=== PATIENT | female | born 1965 | race Caucasian/White ===

== ENCOUNTER 2017-05-08 02:40 | Inpatient (IN) | payer OTHER ==
[~2017-05-08] VITALS: Ht 160 cm; Wt 64.0 kg
[2017-05-08] VITALS (7 sets, daily range): BP systolic 144–179; BP diastolic 81–106; PULSE 79–95; RESP 16–18; TEMP 97.7–98.8; O2SAT 96–99
[~2017-05-08 02:40] MED LIST: ESTR2TAB PO; ONDA4TAB7 OR; OXYC-360 PO; PROT40TA PO
[2017-05-08] MEDS ORDERED: BACT800T5 PO (02:50)
[2017-05-08] MEDS ORDERED: ESTR2TAB PO (02:50)
--- NOTE | 2017-05-08 03:47 | PD ---
HPI Chief Complaint: Skin Problem Time Seen by Provider: 03:36 Travel History International Travel<30 days: No Contact w/Intl Traveler<30days: No Traveled to known affect area: No History of Present Illness HPI The patient is a 51-year-old right-hand dominant female that developed an infection on her volar left thumb. She went to an urgent care Center and had it drained but the infection apparently is spreading from the thumb all the way to the antecubital fossa. She denies any fever. She denies any history of diabetes. She was put on Bactrim DS twice daily, she began this medication yesterday. She does not remember having had a tetanus shot since grade school. The patient states that her thumb first began to get red and painful , 3 days ago. She has not been elevating her left thumb. PFSH Past Medical History Reproductive: Yes (ENDOMETRIOSIS) Tetanus Vaccination: Unknown Influenza Vaccination: No ?: Not Menopausal: Yes : 1 Para: 1 Past Surgical History Hysterectomy: Yes (AGE 31) Tonsillectomy: Yes Social History Alcohol Use: Yes ("ONE BEER A DAY") Tobacco Use: Yes (1 ppd) Substance Use: No Allergies-Medications (Allergen,Severity, Reaction): Coded Allergies: No Known Allergies (Verified , 05/08/17) Reported Meds & Prescriptions Reported Meds & Active Scripts Active Reported Estradiol 2 Mg Tab 2 Mg PO DAILY Bactrim DS (Sulfamethoxazole-Trimethoprim) 800-160 Mg Tab 1 Tab PO BID Review of Systems Except as stated in HPI: all other systems reviewed are Neg Physical Exam Narrative GENERAL: The patient is alert, oriented 3 and slight apparent distress with her left arm/thumb infection. Her vital signs show blood pressure 176/97 but otherwise normal. SKIN: Focused skin assessment warm/dry. There is an apparent incision over is superficial abscesses on the volar aspect of the left thumb. This is on the distal phalanx. There is a red streak extending from the thumb and vesicles on the proximal dorsal thumb and the red streak goes all the way past the antecubital fossa. There are no tender or enlarged axillary lymph nodes. Epitrochlear lymph nodes are nontender and nonenlarged. HEAD: Atraumatic. Normocephalic. EYES: Pupils equal and round. No scleral icterus. No injection or drainage. ENT: No nasal bleeding or discharge. Mucous membranes pink and moist. NECK: Trachea midline. No JVD. CARDIOVASCULAR: Regular rate and rhythm. No murmur appreciated. RESPIRATORY: No accessory muscle use. Clear to auscultation. Breath sounds equal bilaterally. GASTROINTESTINAL: Abdomen soft, non-tender, nondistended. Hepatic and splenic margins not palpable. MUSCULOSKELETAL: No obvious deformities. No clubbing. No cyanosis. The left thumb appears to be the same size as the right thumb and it does not appear that there is any abscess to be drained at this time. NEUROLOGICAL: Awake and alert. No obvious cranial nerve deficits. Motor grossly within normal limits. Normal speech. PSYCHIATRIC: Appropriate mood and affect; insight and judgment normal. Data Data Last Documented VS Vital Signs Date Time Temp Pulse Resp B/P Pulse Ox O2 Delivery O2 Flow Rate FiO2 05/08/17 02:46 98.2 95 16 176/97 97 Room Air Orders Finger ([id number]) (05/08/17 03:47) Complete Blood Count With Diff (05/08/17 03:49) Basic Metabolic Panel (Bmp) (05/08/17 03:49) Wound Culture And Gram Stain (05/08/17 03:51) Tetanus/Diphtheria Tox Adult (Tetanus/Di (05/08/17 04:00) Lactic Acid Sepsis Protocol (05/08/17 04:35) Blood Culture (05/08/17 04:35) Vancomycin Inj (Vancomycin Inj) (05/08/17 04:45) Labs Laboratory Tests Test 05/08/17 04:15 White Blood Count 15.2 TH/MM3 Red Blood Count 4.57 MIL/MM3 Hemoglobin 14.4 GM/DL Hematocrit 41.8 % Mean Corpuscular Volume 91.3 FL Mean Corpuscular Hemoglobin 31.4 PG Mean Corpuscular Hemoglobin 34.4 % Concent Red Cell Distribution Width 12.6 % Platelet Count 232 TH/MM3 Mean Platelet Volume 8.5 FL Neutrophils (%) (Auto) 75.1 % Lymphocytes (%) (Auto) 12.7 % Monocytes (%) (Auto) 8.3 % Eosinophils (%) (Auto) 1.8 % Basophils (%) (Auto) 2.1 % Neutrophils # (Auto) 11.4 TH/MM3 Lymphocytes # (Auto) 1.9 TH/MM3 Monocytes # (Auto) 1.3 TH/MM3 Eosinophils # (Auto) 0.3 TH/MM3 Basophils # (Auto) 0.3 TH/MM3 CBC Comment DIFF FINAL Differential Comment Sodium Level 137 MEQ/L Potassium Level 6.0 MEQ/L Chloride Level 104 MEQ/L Carbon Dioxide Level 26.2 MEQ/L Anion Gap 7 MEQ/L Blood Urea Nitrogen 21 MG/DL Creatinine 0.75 MG/DL Estimat Glomerular Filtration 82 ML/MIN Rate Random Glucose 92 MG/DL Calcium Level 8.6 MG/DL MDM Medical Decision Making Medical Screen Exam Complete: Yes Emergency Medical Condition: Yes Medical Record Reviewed: Yes Interpretation(s) The basic metabolic profile shows a potassium of 6.0, BUN of 21, GFR of 82 but is otherwise unremarkable. The CBC shows a white count of 15,200 with 75% neutrophils but is otherwise unremarkable. X-rays of the thumb on the left show no acute bony abnormality or periosteal reaction but do show soft tissue swelling. Differential Diagnosis Felon thumb, abscess thumb, lymphadenitis left arm Narrative Course The patient has an abscess of the thumb that appears to be adequately drained. The thumb on the left does not appear to be significantly larger than the thumb on the right. The patient does fit sepsis criteria with heart rate, leukocytosis and site of infection known. She does have lymphadenitis past the antecubital fossa. Sepsis Criteria SIRS Criteria (2 or more): Heart rate over 90, WBC > 69617, < 4000 or > 10% bands Sepsis Criteria (SIRS+source): Infect source susp/known Criteria Outcome: Meets sepsis criteria Physician Communication Physician Communication I discussed the patient with Dr. Castro and . The patient will be admitted to Dr. Castro, will be consulting routinely. will see the patient here at [facility] if necessary. Diagnosis Primary Impression: Sepsis Additional Impressions: Acute lymphadenitis of arm Abscess of thumb, left Admitting Information Admitting Physician Requests: Admit Danny Travis MD May 08, 2017 03:47
[2017-05-08] MEDS ORDERED: TETANUS/DIPHTHERIA TOXOID ADULT 0.5 ML VIAL IM ONE (04:00)
--- NOTE | 2017-05-08 04:18 | RADRPT ---
EXAM DATE/TIME: 05/08/2017 03:55 [facility] COMPARISON: No previous studies available for comparison. INDICATIONS : Inflamation and redness of thumb. MEDICAL HISTORY : None. SURGICAL HISTORY : None. ENCOUNTER: Initial ACUITY: 1 day PAIN SCORE: 7/10 LOCATION: Left upper extremity first digit. FINDINGS: Examination of the first digit of the left hand demonstrates no evidence of fracture or dislocation. No radiopaque foreign bodies are seen. Mild soft tissue swelling. No periosteal reaction. CONCLUSION: Soft tissue swelling. No acute bony abnormality. Que Daly MD on May 08, 2017 at 4:16 Board Certified Radiologist. This report was verified electronically.
[2017-05-08 04:25] LABS: AUTOMATED NEUTROPHIL # 11.4 TH/MM3 (1.8-7.7); BASOPHIL # 0.3 TH/MM3 (0-0.2); BASOPHIL % 2.1 % (0.0-2.0); EOSINOPHIL # 0.3 TH/MM3 (0-0.4); EOSINOPHIL % 1.8 % (0.0-4.0); HEMATOCRIT 41.8 % (35.0-46.0); HEMO FLAGS DIFF FINAL; LYMPH % 12.7 % (9.0-44.0); LYMPHOCYTE # 1.9 TH/MM3 (1.0-4.8); MEAN CELL VOLUME 91.3 FL (80.0-100.0); MEAN CORPUSCULAR HEMOGLOBIN 31.4 PG (27.0-34.0); MEAN CORPUSCULAR HGB CONC 34.4 % (32.0-36.0); MONO % 8.3 % (0.0-8.0); NEUT % 75.1 % (16.0-70.0); PLATELET COUNT 232 TH/MM3 (150-450); RED BLOOD COUNT 4.57 MIL/MM3 (4.00-5.30); RED CELL DISTRIBUTION WIDTH 12.6 % (11.6-17.2); WHITE BLOOD COUNT 15.2 TH/MM3 (4.0-11.0)
[2017-05-08 04:35] LABS: BICARBONATE 26.2 MEQ/L (21.0-32.0)
[2017-05-08] MEDS ORDERED: VANCOMYCIN INJ 1,250 MG in SODIUM CHLOR 0.9% 250 ML INJ 250 ML IV ONE (04:45)
[2017-05-08] MEDS ORDERED: cloNIDine HCL 0.1 MG TAB PO ONE (07:00)
[2017-05-08] MEDS ORDERED: ACETAMINOPHEN 325 MG TAB PO PRN (07:30)
[2017-05-08] MEDS ORDERED: MAGNESIUM HYDROXIDE SUSP 30 ML CUP PO PRN (07:30)
[2017-05-08] MEDS ORDERED: LACTULOSE SYRUP 20 GM/30 ML CUP PO PRN (07:30)
[2017-05-08] MEDS ORDERED: SENNOSIDES 8.6 MG TAB PO PRN (07:30)
[2017-05-08] MEDS ORDERED: SODIUM CHLORIDE 0.9% FLUSH 10 ML FLUSH IV FLUSH PRN (07:30)
[2017-05-08] MEDS ORDERED: BISACODYL 10 MG SUPP RECTAL PRN (07:30)
[2017-05-08] MEDS ORDERED: NALOXONE HCL 0.4 MG/ML AMP IV PRN (07:30)
[2017-05-08] MEDS ORDERED: Vancomycin Consult Pharmacy 1 EA OTHER SCH (07:45)
[2017-05-08] MEDS ORDERED: cloNIDine HCL 0.1 MG TAB PO PRN (07:45)
[2017-05-08] MEDS: SULFAMETHOXAZOLE-TRIMETHOPRIM DS 800-160 MG TAB PO SCH ×2 (08:34→21:42)
[2017-05-08] MEDS: DOCUSATE SODIUM 50 MG/SENNA 8.6 MG TAB PO SCH ×2 (08:34→21:43)
[2017-05-08] MEDS: SODIUM CHLORIDE 0.9% FLUSH 10 ML FLUSH IV FLUSH SCH ×2 (08:35→21:44)
[2017-05-08] MEDS: ESTRADIOL 1 MG TAB PO SCH (10:19)
[2017-05-08] MEDS: HYDROmorphone HCL PF 1 MG/ML VIAL IV PUSH PRN ×2 (10:52→21:43)
--- NOTE | 2017-05-08 10:52 | HHI.HP ---
HPI Service [facility] Hospitalists Primary Care Physician Maria Elena Melton MD Admission Diagnosis sepsis, lymphadenitis left arm, abscess left thumb Chief Complaint: lymphadenitis left arm abscess left thumb Travel History International Travel<30 Days: No Contact w/Intl Traveler <30 Da: No Traveled to Known Affected Are: No History of Present Illness The patient is a 51-year-old right-hand dominant female that developed an infection on her volar left thumb. She went to an urgent care Center and had it drained but the infection apparently is spreading from the thumb all the way to the antecubital fossa. She denies any fever. She denies any history of diabetes. She was put on Bactrim DS twice daily, she began this medication yesterday. She does not remember having had a tetanus shot since grade school. The patient states that her thumb first began to get red and painful , 3 days ago. She has not been elevating her left thumb. Patient also with blisters on base of thumb. [facility] Review of Systems Musculoskeletal: COMPLAINS OF: Joint pain, Joint Swelling Past Family Social History Past Medical History since being teenager has had blisters on fingers that would go away Past Surgical History hysterectomy tonsil Reported Medications septra bid given by urgent care estrandiol Allergies: Coded Allergies: No Known Allergies (Verified , 05/08/17) Social History smokes 1ppd and 1 beer a day Physical Exam Vital Signs Vital Signs Date Time Temp Pulse Resp B/P Pulse Ox O2 Delivery O2 Flow Rate FiO2 05/08/17 08:00 97.9 79 18 173/94 99 05/08/17 06:25 98.6 83 18 175/106 99 05/08/17 05:05 97.9 87 16 179/86 98 Room Air 05/08/17 02:46 98.2 95 16 176/97 97 Room Air 05/08/17 02:46 98.2 95 16 176/97 97 Room Air Physical Exam GENERAL: This is a well-nourished, well-developed patient, in no apparent distress. SKIN: No rashes, ecchymoses or lesions. Cool and dry.Incision over superficial abscess volar aspect left thumb red streak thumb prox dorsal past antecubital fossa with large blister HEAD: Atraumatic. Normocephalic. No temporal or scalp tenderness. EYES: Pupils equal round and reactive. Extraocular motions intact. No scleral icterus. No injection or drainage. ENT: Nose without bleeding, purulent drainage or septal hematoma. Throat without erythema, tonsillar hypertrophy or exudate. Uvula midline. Airway patent. NECK: Trachea midline. No JVD or lymphadenopathy. Supple, nontender, no meningeal signs. CARDIOVASCULAR: Regular rate and rhythm without murmurs, gallops, or rubs. RESPIRATORY: Clear to auscultation. Breath sounds equal bilaterally. No wheezes , rales, or rhonchi. GASTROINTESTINAL: Abdomen soft, non-tender, nondistended. No hepato-splenomegaly , or palpable masses. No guarding. MUSCULOSKELETAL: Extremities without clubbing, cyanosis, or edema. No joint tenderness, effusion, or edema noted. No calf tenderness. Negative Homans sign bilaterally. NEUROLOGICAL: Awake and alert. Cranial nerves II through XII intact. Motor and sensory grossly within normal limits. Five out of 5 muscle strength in all muscle groups. Normal speech. Laboratory Laboratory Tests Test 05/08/17 05/08/17 04:15 04:45 White Blood Count 15.2 Red Blood Count 4.57 Hemoglobin 14.4 Hematocrit 41.8 Mean Corpuscular Volume 91.3 Mean Corpuscular Hemoglobin 31.4 Mean Corpuscular Hemoglobin 34.4 Concent Red Cell Distribution Width 12.6 Platelet Count 232 Mean Platelet Volume 8.5 Neutrophils (%) (Auto) 75.1 Lymphocytes (%) (Auto) 12.7 Monocytes (%) (Auto) 8.3 Eosinophils (%) (Auto) 1.8 Basophils (%) (Auto) 2.1 Neutrophils # (Auto) 11.4 Lymphocytes # (Auto) 1.9 Monocytes # (Auto) 1.3 Eosinophils # (Auto) 0.3 Basophils # (Auto) 0.3 CBC Comment DIFF FINAL Differential Comment Sodium Level 137 Potassium Level 6.0 Chloride Level 104 Carbon Dioxide Level 26.2 Anion Gap 7 Blood Urea Nitrogen 21 Creatinine 0.75 Estimat Glomerular Filtration 82 Rate Random Glucose 92 Calcium Level 8.6 Lactic Acid Level 1.1 Date/Time Procedure Status Source Growth 05/08/17 04:45 Aerobic Blood Culture Received Blood Peripheral Pending 05/08/17 04:45 Anaerobic Blood Culture Received Blood Peripheral Pending 05/08/17 03:50 Gram Stain Received Wound Finger Pending 05/08/17 03:50 Wound Culture Received Wound Finger Pending Result Diagram: 05/08/17 0415 05/08/17 0415 Imaging Last 24 hours Impressions Finger X-Ray 05/08/17 0347 Signed Impressions: Service Date/Time: Monday, May 08, 2017 03:55 - CONCLUSION: Soft tissue swelling. No acute bony abnormality. Que Daly MD Course started on vancomycin continue bactrim Assessment and Plan Problem List: (1) Abscess of thumb, left Status: Acute Plan: consult ortho hand continue vancomycin and bactrim add pain meds (2) Acute lymphadenitis of arm Status: Acute Plan: as follow cbc above (3) Sepsis Status: Acute Plan: does meet sirs criteria with wbc elevation Assessment and Plan further plan as case develops Code Status full Discussed Condition With patient Physician Certification 2 Midnight Certification Type: Admission for Inpatient Services Order for Inpatient Services The services are ordered in accordance with Medicare regulations or non- Medicare payer requirements, as applicable. In the case of services not specified as inpatient-only, they are appropriately provided as inpatient services in accordance with the 2-midnight benchmark. Estimated LOS (days): 3 3 days is the estimated time the patient will need to remain in the hospital, assuming treatment plan goals are met and no additional complications. Post-Hospital Plan: Not yet determined Denny Schreiber MD May 08, 2017 10:51
[2017-05-08] MEDS ORDERED: CYCLOBENZAPRINE HCL 10 MG TAB PO ONE (11:00)
[2017-05-08] MEDS ORDERED: POVIDONE IODINE 10% OINT 1 PACKET TOPICAL SCH (15:00)
--- NOTE | 2017-05-08 15:50 | MB ---
cc: DANIELA CAMERON M.D. DATE OF CONSULTATION 05/08/2017 REQUESTING PHYSICIAN The patient is being seen at request of Dr. Danny Travis REASON FOR CONSULTATION Infection of her left thumb. HISTORY OF PRESENT ILLNESS The patient is a 51-year-old female with a history of "cyst" since she has been a teenager. Recently the patient noted a cyst on the volar aspect of her left thumb. She went to an urgent care center yesterday and had it drained. Overnight the infection began to spread in terms of ascending lymphangitis and the patient came to the emergency room requesting treatment. The patient does report that the incision and drainage did relieve the pain on the volar pad of her left thumb but now she has some pain more proximally. She has difficulty bending her thumb. REVIEW OF SYSTEMS Positive for joint pain and swelling otherwise negative in detail. PAST MEDICAL HISTORY She denies high blood pressure, diabetes, heart disease, kidney disease, liver disease or disease of infectious etiology. PAST SURGICAL HISTORY 1. She had a hysterectomy. 2. And tonsillectomy. MEDICATIONS Include: 1. Septra. 2. Estradiol. ALLERGIES None. SOCIAL HISTORY She smokes a pack cigarettes per day and drinks a beer a day. PHYSICAL EXAMINATION GENERAL: On examination the patient is lying comfortably in bed. VITAL SIGNS: Temperature is 97.7, pulse of 82, respirations 18, blood pressure 144/84, pulse oximetry is 96% on room air. HEENT: Examination reveals her extraocular muscles are intact. Pupils are equal and reactive to light. Mouth is clear. NECK: Supple without masses. LUNGS: Clear. CARDIOVASCULAR: Heart is regular rate and rhythm. EXTREMITIES: Examination of upper extremities reveals minimal swelling of the volar pad of the left thumb. There is a blister dorsally over the MP joint but this is superficial. There is some swelling of the palmar surface. There is tenderness on palmar surface and the first webspace and bending her thumb is painful. LABORATORY DATA Her white count on admission was 15.2 with 75.1% neutrophils. Her chemistry revealed potassium 6.0, BUN of 21, creatinine of 0.75. We do not have any microbiological data yet. Although she did have a Gram stain and a wound culture as well as blood cultures. IMAGING The patient had an x-ray which is negative for bony involvement. IMPRESSION The patient appears to have infection of her left thumb. There is a possibility that the infection may have gotten into the tendon sheath although it is inconclusive at this time. PLAN The patient will continue intravenous antibiotics and will be reevaluated in 24 hours for possible surgical exploration. The patient understands and accepts the treatment plan. MD LEO Neal/LAWRENCE /2:30 PM /3:35 PM
[2017-05-08] MEDS: POVIDONE IODINE 10% SOLN 118 ML BOTTLE TOPICAL SCH (15:57)
[2017-05-08] MEDS: VANCOMYCIN INJ 750 MG in SODIUM CHLOR 0.9% 250 ML INJ 250 ML IV SCH (17:08)
[2017-05-09 00:55] VITALS: BP 138/94; PULSE 76; RESP 16; TEMP 98.9; O2SAT 97
[2017-05-09] MEDS: VANCOMYCIN INJ 750 MG in SODIUM CHLOR 0.9% 250 ML INJ 250 ML IV SCH ×2 (04:22→17:44)
[2017-05-09 04:52] VITALS: BP 187/108; PULSE 100; RESP 20; TEMP 98.3; O2SAT 95
[2017-05-09 06:55] LABS: AUTOMATED NEUTROPHIL # 9.5 TH/MM3 (1.8-7.7); BASOPHIL # 0.1 TH/MM3 (0-0.2); BASOPHIL % 0.7 % (0.0-2.0); EOSINOPHIL # 0.2 TH/MM3 (0-0.4); EOSINOPHIL % 1.3 % (0.0-4.0); HEMATOCRIT 39.5 % (35.0-46.0); HEMO FLAGS DIFF FINAL; LYMPH % 14.7 % (9.0-44.0); LYMPHOCYTE # 1.9 TH/MM3 (1.0-4.8); MEAN CELL VOLUME 92.1 FL (80.0-100.0); MEAN CORPUSCULAR HEMOGLOBIN 31.2 PG (27.0-34.0); MEAN CORPUSCULAR HGB CONC 33.9 % (32.0-36.0); MONO % 8.2 % (0.0-8.0); NEUT % 75.1 % (16.0-70.0); PLATELET COUNT 142 TH/MM3 (150-450); RED BLOOD COUNT 4.29 MIL/MM3 (4.00-5.30); RED CELL DISTRIBUTION WIDTH 12.1 % (11.6-17.2); WHITE BLOOD COUNT 12.8 TH/MM3 (4.0-11.0)
[2017-05-09 07:08] LABS: ALKALINE PHOSPHATASE 85 U/L (45-117); ALT (GPT) 10 U/L (10-53); ANION GAP 8 MEQ/L (5-15); AST (GOT) 11 U/L (15-37); BICARBONATE 24.3 MEQ/L (21.0-32.0); BLOOD UREA NITROGEN 15 MG/DL (7-18); CHLORIDE 109 MEQ/L (98-107); GLOMERULAR FILTRATION RATE 95 ML/MIN (>89); SODIUM (NA) 141 MEQ/L (136-145); TOTAL BILIRUBIN ADULT 0.5 MG/DL (0.2-1.0)
[2017-05-09 08:00] VITALS: BP 159/80; PULSE 81; RESP 16; TEMP 98; O2SAT 96
[2017-05-09] MEDS: DOCUSATE SODIUM 50 MG/SENNA 8.6 MG TAB PO SCH ×2 (08:54→21:00)
[2017-05-09] MEDS: SULFAMETHOXAZOLE-TRIMETHOPRIM DS 800-160 MG TAB PO SCH ×2 (08:54→21:33)
[2017-05-09] MEDS: SODIUM CHLORIDE 0.9% FLUSH 10 ML FLUSH IV FLUSH SCH ×2 (08:54→21:33)
[2017-05-09] MEDS: ESTRADIOL 1 MG TAB PO SCH (08:54)
[2017-05-09] MEDS: POVIDONE IODINE 10% OINT 30 GM TUBE TOPICAL SCH (08:59)
[2017-05-09] MEDS: POVIDONE IODINE 10% SOLN 118 ML BOTTLE TOPICAL SCH (09:00)
[2017-05-09] MEDS: HYDROmorphone HCL PF 1 MG/ML VIAL IV PUSH PRN ×3 (09:45→21:33)
--- NOTE | 2017-05-09 11:19 | HHI.PR ---
Subjective Remarks patient admitted with left thumb infection with lymangitis going up left arm , today seems to have increased to above anticubital fossa ,Orth. hand will recheck today and may require surgical exploration . Patient WBC count improved slightly. Objective Vitals GENERAL: SKIN: Warm and dry. red streking continues above left anticubital fossa HEAD: Atraumatic. Normocephalic. EYES: Pupils equal and round. No scleral icterus. No injection or drainage. ENT: No nasal bleeding or discharge. Mucous membranes pink and moist. NECK: Trachea midline. No JVD. CARDIOVASCULAR: Regular rate and rhythm. RESPIRATORY: No accessory muscle use. Clear to auscultation. Breath sounds equal bilaterally. GASTROINTESTINAL: Abdomen soft, non-tender, nondistended. Hepatic and splenic margins not palpable. MUSCULOSKELETAL: Extremities without clubbing, cyanosis, or edema. No obvious deformities. NEUROLOGICAL: Awake and alert. No obvious cranial nerve deficits. Motor grossly within normal limits. Five out of 5 muscle strength in the arms and legs. Normal speech. PSYCHIATRIC: Appropriate mood and affect; insight and judgment normal. Vital Signs Date Time Temp Pulse Resp B/P Pulse Ox O2 Delivery O2 Flow Rate FiO2 05/09/17 08:00 98.0 81 16 159/80 96 05/09/17 04:52 98.3 100 20 187/108 95 05/09/17 00:55 98.9 76 16 138/94 97 05/08/17 20:32 98.3 87 18 144/81 97 05/08/17 16:00 98.8 92 16 157/96 97 05/08/17 12:00 97.7 82 18 144/84 96 05/08/17 05/08/17 05/09/17 15:00 23:00 07:00 # Voids 2 Result Diagram: 05/09/17 0625 05/09/17 0625 Imaging Last 24 hours Impressions Finger X-Ray 05/08/17 0347 Signed Impressions: Service Date/Time: Monday, May 08, 2017 03:55 - CONCLUSION: Soft tissue swelling. No acute bony abnormality. Que Daly MD A/P Problem List: (1) Abscess of thumb, left Status: Acute Plan: vancomycin and bactrim add pain meds,ortho hand has evaluated patient any may require surgery (2) Acute lymphadenitis of arm Status: Acute Plan: as follow cbc slightly better today but red streking may have increased (3) Sepsis Status: Acute Plan: does meet sirs criteria with wbc elevation Assessment and Plan further plan as per hand surgeon Denny Schreiber MD May 09, 2017 11:18
[2017-05-09 12:00] VITALS: BP 155/87; PULSE 88; RESP 18; TEMP 98.7; O2SAT 96
[2017-05-09] MEDS ORDERED: PHARMACY ORDERED LAB ONE (16:45)
--- NOTE | 2017-05-09 17:39 | PD.PLAS.PN ---
Subjective Remarks Patient continues to have pain in the left thumb. Vital Signs Date Time Temp Pulse Resp B/P Pulse Ox O2 Delivery O2 Flow Rate FiO2 05/09/17 15:38 18 05/09/17 12:00 98.7 88 18 155/87 96 05/09/17 08:00 98.0 81 16 159/80 96 05/09/17 04:52 98.3 100 20 187/108 95 05/09/17 00:55 98.9 76 16 138/94 97 05/08/17 20:32 98.3 87 18 144/81 97 I/O 05/08/17 05/08/17 05/08/17 05/09/17 05/09/17 05/09/17 07:00 15:00 23:00 07:00 15:00 23:00 Intake Total 250 ml 600 ml Balance 250 ml 600 ml Intake Oral 600 ml IV Total 250 ml # Voids 1 2 2 Laboratory Tests Test 05/09/17 06:25 White Blood Count 12.8 Red Blood Count 4.29 Hemoglobin 13.4 Hematocrit 39.5 Mean Corpuscular Volume 92.1 Mean Corpuscular Hemoglobin 31.2 Mean Corpuscular Hemoglobin 33.9 Concent Red Cell Distribution Width 12.1 Platelet Count 142 Mean Platelet Volume 8.6 Neutrophils (%) (Auto) 75.1 Lymphocytes (%) (Auto) 14.7 Monocytes (%) (Auto) 8.2 Eosinophils (%) (Auto) 1.3 Basophils (%) (Auto) 0.7 Neutrophils # (Auto) 9.5 Lymphocytes # (Auto) 1.9 Monocytes # (Auto) 1.1 Eosinophils # (Auto) 0.2 Basophils # (Auto) 0.1 CBC Comment DIFF FINAL Differential Comment Sodium Level 141 Potassium Level 4.0 Chloride Level 109 Carbon Dioxide Level 24.3 Anion Gap 8 Blood Urea Nitrogen 15 Creatinine 0.66 Estimat Glomerular Filtration 95 Rate Random Glucose 82 Calcium Level 7.9 Total Bilirubin 0.5 Aspartate Amino Transf 11 (AST/SGOT) Alanine Aminotransferase 10 (ALT/SGPT) Alkaline Phosphatase 85 Total Protein 6.1 Albumin 2.7 Date/Time Procedure Status Source Growth 05/08/17 04:45 Aerobic Blood Culture - Preliminary Resulted Blood Peripheral NO GROWTH IN 1 DAY 05/08/17 04:45 Anaerobic Blood Culture - Preliminary Resulted Blood Peripheral NO GROWTH IN 1 DAY 05/08/17 03:50 Gram Stain - Final Resulted Wound Finger 05/08/17 03:50 Wound Culture - Preliminary Resulted Staphylococcus Aureus Group A Beta Strep Result Diagram: 05/09/1762405/09/17624 Exam Findings Her range of motion has not improved significantly. There is still swelling of the surrounding tissues. Plan Impression: The patient may have involvement of the tendon sheath. There may be a deep abscess. Plan: The patient will have her left thumb explored in the OR in the morning. She understands and accepts the risks and complications of the surgery. Tamara Brenner MD May 09, 2017 17:39
[2017-05-09 18:00] VITALS: BP 177/95; PULSE 96; RESP 18; TEMP 98.7
[2017-05-09 20:00] VITALS: BP 133/91; PULSE 88; RESP 18; TEMP 97.7; O2SAT 96
[2017-05-10] VITALS: BP 141/94; PULSE 87; RESP 18; TEMP 98.2; O2SAT 96
[2017-05-10] MEDS: VANCOMYCIN 1,000 MG/NS 250 ML IV SCH ×4 (05:06→16:23)
[2017-05-10 08:04] VITALS: BP 171/80; PULSE 84; RESP 19; TEMP 97.6; O2SAT 95
[2017-05-10] MEDS: POVIDONE IODINE 10% OINT 30 GM TUBE TOPICAL SCH (09:00)
[2017-05-10] MEDS: POVIDONE IODINE 10% SOLN 118 ML BOTTLE TOPICAL SCH (09:00)
[2017-05-10] MEDS: SODIUM CHLORIDE 0.9% FLUSH 10 ML FLUSH IV FLUSH SCH ×2 (09:00→20:55)
[2017-05-10] MEDS: DOCUSATE SODIUM 50 MG/SENNA 8.6 MG TAB PO SCH ×2 (10:12→20:54)
[2017-05-10] MEDS: ESTRADIOL 1 MG TAB PO SCH (10:12)
[2017-05-10] MEDS: SULFAMETHOXAZOLE-TRIMETHOPRIM DS 800-160 MG TAB PO SCH ×2 (10:12→20:54)
[2017-05-10] MEDS ORDERED: ONDANSETRON HCL 4 MG/2 ML VIAL IV PUSH ONE (12:00)
[2017-05-10] MEDS ORDERED: PROPOFOL 200 MG/20 ML AMP IV ONE (12:00)
[2017-05-10] MEDS ORDERED: BUPIVACAINE HCL PF 0.5% 30 ML VIAL ONE (12:28)
[2017-05-10] MEDS ORDERED: POVIDONE IODINE 10% OINT 1 PACKET ONE (13:13)
--- NOTE | 2017-05-10 13:24 | HHI.PR ---
Immediate Post Op Note Procedure Date: May 10, 2017 Pre Op Diagnosis: (1) Abscess of thumb, left Post Op Diagnosis: (1) Abscess of thumb, left Surgeon: Tamara Brenner Visual Developer(s): None Procedure: Incision and drainage of abscess of left thumb. Anesthesia: General Drains: Other (1/4 inch iodoform packing.) Tourniquet time (min at mmHg) 15 minutes at 220 mm Hg. Patient to: PACU Patient Condition: Good Date/Time of Procedure: SEE SURGICAL CARE RECORD Tamara Brenner MD May 10, 2017 13:24
[2017-05-10 13:28] VITALS: PULSE 91
--- NOTE | 2017-05-10 15:57 | HHI.PR ---
Subjective Remarks Patient went to OR for I and D for left thumb abscess ,cultures gram stain strep sensitive to vanco and bacrim Objective Vitals GENERAL: SKIN: Warm and dry. Hand has bandage still some reddness arm HEAD: Atraumatic. Normocephalic. EYES: Pupils equal and round. No scleral icterus. No injection or drainage. ENT: No nasal bleeding or discharge. Mucous membranes pink and moist. NECK: Trachea midline. No JVD. CARDIOVASCULAR: Regular rate and rhythm. RESPIRATORY: No accessory muscle use. Clear to auscultation. Breath sounds equal bilaterally. GASTROINTESTINAL: Abdomen soft, non-tender, nondistended. Hepatic and splenic margins not palpable. MUSCULOSKELETAL: Extremities without clubbing, cyanosis, or edema. No obvious deformities. NEUROLOGICAL: Awake and alert. No obvious cranial nerve deficits. Motor grossly within normal limits. Five out of 5 muscle strength in the arms and legs. Normal speech. PSYCHIATRIC: Appropriate mood and affect; insight and judgment normal. Vital Signs Date Time Temp Pulse Resp B/P Pulse Ox O2 Delivery O2 Flow Rate FiO2 05/10/17 14:00 97.7 84 16 147/84 96 Room Air 05/10/17 13:45 97.7 83 16 139/77 96 Room Air 05/10/17 13:30 97.7 84 16 139/76 96 Room Air 05/10/17 13:28 97.7 86 16 151/94 97 Room Air 05/10/17 13:28 91 05/10/17 10:50 97.9 90 18 154/98 98 05/10/17 08:04 97.6 84 19 171/80 95 05/10/17 00:00 98.2 87 18 141/94 96 05/09/17 20:00 97.7 88 18 133/91 96 05/09/17 18:00 98.7 96 18 177/95 05/09/17 05/09/17 05/10/17 15:00 23:00 07:00 Intake Total 600 ml 450 ml 250 ml Balance 600 ml 450 ml 250 ml Intake Oral 600 ml 200 ml 0 ml IV Total 250 ml 250 ml # Voids 2 2 1 # Bowel Movements 0 Result Diagram: 05/09/17 0625 05/09/17 0625 Imaging Last 24 hours Impressions Finger X-Ray 05/08/17 0347 Signed Impressions: Service Date/Time: Monday, May 08, 2017 03:55 - CONCLUSION: Soft tissue swelling. No acute bony abnormality. Que Daly MD A/P Problem List: (1) Abscess of thumb, left Status: Acute Plan: vancomycin and bactrim add pain meds,ortho hand has evaluated s/p surgery for left thumb abscess (2) Acute lymphadenitis of arm Status: Acute Plan: as follow cbc slightly better today but red streking may have increased (3) Sepsis Status: Acute Plan: does meet sirs criteria with wbc elevation Assessment and Plan further plan as per hand surgeon Denny Schreiber MD May 10, 2017 15:57
[2017-05-10] MEDS: HYDROmorphone HCL PF 1 MG/ML VIAL IV PUSH PRN ×2 (16:23→23:29)
[2017-05-10 16:57] VITALS: BP 162/72; PULSE 84; RESP 19; TEMP 97.6; O2SAT 91
[2017-05-10 20:00] VITALS: BP 151/85; PULSE 87; RESP 20; TEMP 97.4; O2SAT 96
[2017-05-10] MEDS ORDERED: CHLORHEXIDINE GLUCONATE 2 % 1 PACK (2 CLOTHS) TOPICAL PRN (22:15)
[2017-05-10] MEDS ORDERED: POVIDONE IODINE 5% (ANTISEPSIS KIT) 4 APPLICATIONS EACH NARE PRN (22:15)
[2017-05-10] MEDS ORDERED: INSULIN HUMAN REGULAR 1,000 UNITS/10 ML VIAL SQ PRN (22:15)
[2017-05-10] MEDS ORDERED: LACTATED RINGER'S 1000 ML IV PRN (22:15)
[2017-05-11] VITALS: BP 162/89; PULSE 78; RESP 20; TEMP 96.9; O2SAT 96
[2017-05-11 04:00] VITALS: BP 142/86; PULSE 70; RESP 20; TEMP 96; O2SAT 97
[2017-05-11] MEDS: HYDROmorphone HCL PF 1 MG/ML VIAL IV PUSH PRN ×3 (05:31→21:28)
[2017-05-11] MEDS: VANCOMYCIN 1,000 MG/NS 250 ML IV SCH ×2 (05:31)
[2017-05-11 06:09] LABS: AUTOMATED NEUTROPHIL # 9.6 TH/MM3 (1.8-7.7); BASOPHIL # 0.1 TH/MM3 (0-0.2); BASOPHIL % 0.4 % (0.0-2.0); EOSINOPHIL # 0.1 TH/MM3 (0-0.4); HEMATOCRIT 38.8 % (35.0-46.0); HEMO FLAGS DIFF FINAL; LYMPH % 15.7 % (9.0-44.0); MEAN CELL VOLUME 91.4 FL (80.0-100.0); MEAN CORPUSCULAR HEMOGLOBIN 31.1 PG (27.0-34.0); NEUT % 74.9 % (16.0-70.0); PLATELET COUNT 267 TH/MM3 (150-450); RED BLOOD COUNT 4.25 MIL/MM3 (4.00-5.30); RED CELL DISTRIBUTION WIDTH 12.1 % (11.6-17.2); WHITE BLOOD COUNT 12.8 TH/MM3 (4.0-11.0)
--- NOTE | 2017-05-11 07:05 | MP ---
cc: DANIELA CAMERON M.D. DATE OF SURGERY 05/10/2017 PREOPERATIVE DIAGNOSIS Abscess of left thumb. POSTOPERATIVE DIAGNOSIS Abscess of left thumb. PROCEDURE Excision and drainage abscess of left thumb. ANESTHESIA General SURGEON Dr. Cameron INDICATIONS This is a 51-year-old female with a history of multiple cysts and abscesses which are formed. The patient developed one over the weekend, was seen in the Urgent Care Center where it was drained. When the patient came in, the culture was still positive for Staph aureus which was sensitive to most things except penicillin. Over the admission, the patient's white count has diminished as well as swelling, but she still remained symptomatic with difficulty bending her thumb. FINDINGS Exploration revealed a small amount of turbid fluid within the abscess cavity. The tendon sheath was not entered and there was no fluid within the tendon sheath of the thumb. The other areas were explored. There was no evidence of any difficulty passively bending her thumb. In addition, no other areas of fluctuance were noted. At the completion of the procedure, the area of the thumb was drained and packed. A median nerve block was effected using bupivacaine 0.5% plain for postoperative pain control. TOURNIQUET TIME 19 minutes PROCEDURE The patient was seen preoperatively where the site and side were identified and marked. The patient was then taken to the operating room, placed in a supine position. Her identity was checked against the arm band and the consent form site and side confirmed, time-out called prior to beginning the procedure. The left upper extremity was prepped with Hibiclens and draped in the usual sterile fashion. The area to be incised was outlined with a marking pen as a longitudinal incision in the area of the previous incision and drainage which had healed. Some scabbing was present. The arm was elevated and the tourniquet was inflated after 30 seconds to 220 mmHg. The scab was then removed and an incision was made in the area of the swelling and fluctuance. A small amount of turbid fluid was present. This was irrigated out. The area was cleansed, exploration down to the area of the insertion of the flexor pollicis longus was undertaken, the tendon was visualized, pressure was placed from the wrist all the way up along the tendon sheath all the way to that area of the wound and no pus was expressed. The finger was flexed fully. There was no difficulty flexing the thumb and there was no additional fluid that was seen. The blister on the back of the thumb which had been drained was debrided. The area was then infiltrated with 0.5% Marcaine. This was infiltrated to make a median nerve block that was the only area that was injected. Once the block was put in place and the wound was irrigated, it was packed with quarter iodoform packing along with povidone-iodine ointment, which was also placed on the blister and a dry dressing using Adaptic, Telfa, 4x4s and hand wrap. The patient was then taken from the operating room to the recovery room in satisfactory condition having tolerated the procedure well. The tourniquet had been released after 50 minutes of tourniquet time. This was just before placing a dressing. No significant bleeding was noted. Postoperative instructions were written. MD LEO Neal/ZEINA /1:27 PM /6:53 AM JOAQUIN
[2017-05-11 08:56] VITALS: BP 158/91; PULSE 78; RESP 16; TEMP 96.9; O2SAT 96
[2017-05-11] MEDS: POVIDONE IODINE 10% OINT 30 GM TUBE TOPICAL SCH (08:58)
[2017-05-11] MEDS: DOCUSATE SODIUM 50 MG/SENNA 8.6 MG TAB PO SCH ×2 (08:58→21:28)
[2017-05-11] MEDS: ESTRADIOL 1 MG TAB PO SCH (08:58)
[2017-05-11] MEDS: SULFAMETHOXAZOLE-TRIMETHOPRIM DS 800-160 MG TAB PO SCH (08:58)
[2017-05-11] MEDS: SODIUM CHLORIDE 0.9% FLUSH 10 ML FLUSH IV FLUSH SCH ×2 (08:59→21:29)
[2017-05-11] MEDS: POVIDONE IODINE 10% SOLN 118 ML BOTTLE TOPICAL SCH (08:59)
--- NOTE | 2017-05-11 10:53 | HHI.PR ---
Subjective Remarks Patient feels about the same with increasing left arm discomfort with persistent lymphangitis ,s/p surgery yesterday Objective Vitals GENERAL: SKIN: Warm and dry. red not hot some tenderness left arm dressing on left thumb hand HEAD: Atraumatic. Normocephalic. EYES: Pupils equal and round. No scleral icterus. No injection or drainage. ENT: No nasal bleeding or discharge. Mucous membranes pink and moist. NECK: Trachea midline. No JVD. CARDIOVASCULAR: Regular rate and rhythm. RESPIRATORY: No accessory muscle use. Clear to auscultation. Breath sounds equal bilaterally. GASTROINTESTINAL: Abdomen soft, non-tender, nondistended. Hepatic and splenic margins not palpable. MUSCULOSKELETAL: Extremities without clubbing, cyanosis, or edema. No obvious deformities. NEUROLOGICAL: Awake and alert. No obvious cranial nerve deficits. Motor grossly within normal limits. Five out of 5 muscle strength in the arms and legs. Normal speech. PSYCHIATRIC: Appropriate mood and affect; insight and judgment normal. Vital Signs Date Time Temp Pulse Resp B/P Pulse Ox O2 Delivery O2 Flow Rate FiO2 05/11/17 08:56 96.9 78 16 158/91 96 05/11/17 04:00 96.0 70 20 142/86 97 05/11/17 00:00 96.9 78 20 162/89 96 05/10/17 20:00 97.4 87 20 151/85 96 05/10/17 16:57 97.6 84 19 162/72 91 05/10/17 14:00 97.7 84 16 147/84 96 Room Air 05/10/17 13:45 97.7 83 16 139/77 96 Room Air 05/10/17 13:30 97.7 84 16 139/76 96 Room Air 05/10/17 13:28 97.7 86 16 151/94 97 Room Air 05/10/17 13:28 91 05/10/17 05/10/17 05/11/17 14:59 22:59 06:59 Intake Total 840 ml 1250 ml 120 ml Output Total 0 ml Balance 840 ml 1250 ml 120 ml Intake Oral 240 ml 1250 ml 120 ml IV Total 100 ml Other 500 ml Output Urine Total 0 ml # Voids 0 9 0 # Bowel Movements 0 0 Result Diagram: 05/11/17 0505 05/09/17 0625 Imaging Last 24 hours Impressions Finger X-Ray 05/08/17 0347 Signed Impressions: Service Date/Time: Monday, May 08, 2017 03:55 - CONCLUSION: Soft tissue swelling. No acute bony abnormality. Que Daly MD A/P Problem List: (1) Abscess of thumb, left Status: Acute Plan: vancomycin and bactrim add pain meds,ortho hand has evaluated s/p surgery for left thumb abscess still with pain (2) Acute lymphadenitis of arm Status: Acute Plan: as follow cbc slightly better today but red streking may have increased will ask ID to evaluate (3) Sepsis Status: Acute Plan: does meet sirs criteria with wbc elevation Assessment and Plan further plan as per hand surgeon Denny Schreiber MD May 11, 2017 10:52
[2017-05-11 14:13] VITALS: BP 151/90; PULSE 73; RESP 16; TEMP 97.4; O2SAT 97
--- NOTE | 2017-05-11 14:38 | PD.CONS ---
History of Present Illness Service Infectious disease Consult Requested By Dr. Schreiber Reason for Consult Evaluate patient with persistent lymphangitis Primary Care Physician Maria Elena Melton MD Diagnoses: History of Present Illness Patient seen and examined. Records reviewed. Patient is a 51-year-old female admitted to the hospital for further evaluation of pain swelling redness on her left hand that goes up to her left forearm. According to the patient she gets this bumps on her hands on and off for a while now. They usually will prove one its own without any medical attention. This time she had noted a bump on her left thumb about 3-4 days prior to admission. It started getting bigger and a second one close to it also showed up. It was giving her significant pain, so she went to an urgent care center one day prior to admission. One of the lesion was drained and she was given on antibiotics. The day of admission when she woke up she noted that her left thumb was swollen and her left hand with redness going up to her left forearm. She continued to have significant pain. She presented to the hospital for further evaluation and treatment. He has not had any fever or chills or sweats. She denies any sore throat or any respiratory symptoms, GI or any urinary symptom. Since admission patient has not had any fever. Her initial white count was 15,000, and it's down to 12,000. Hand surgery evaluated the patient, and because she was not improving the clinic, she was taken to surgery yesterday and underwent I and D of the abscess on her left thumb. MRSA culture on admission of the wound, and it has MSSA, and group A strep. Patient is still complaining of pain. She is also noticing an area of lymphangitis which according to her was not present prior to admission. Infectious disease consultation has been requested to evaluate the patient. Review of Systems Constitutional: DENIES: Fever, Chills, Night Sweats Eyes: DENIES: Eye pain Ears, nose, mouth, throat: DENIES: Nasal discharge, Oral lesions, Throat pain, Ear Pain Respiratory: DENIES: Cough, Shortness of breath Cardiovascular: DENIES: Chest pain, Palpitations, Syncope Gastrointestinal: DENIES: Abdominal pain, Nausea, Vomiting, Difficulty Swallowing Genitourinary: DENIES: Dysuria Musculoskeletal: COMPLAINS OF: Joint pain, Joint Swelling Integumentary: DENIES: Rash Immunologic/allergic: DENIES: Urticaria Neurologic: DENIES: Headache Psychiatric: DENIES: Confusion, Hallucinations Past Family Social History Allergies: Coded Allergies: No Known Allergies (Verified , 05/08/17) Past Medical History Endometriosis One and normal delivery Past Surgical History Hysterectomy Tonsillectomy Active Ordered Medications Tylenol Dulcolax Clonidine Estradiol Dilaudid Insulin Lactulose MOM Dayanna-Colace Senokot Bactrim Vancomycin Family History Noncontributory Social History Smokes one pack per day cigarette Drinks usually 1 beer a day Denies illicit drugs Physical Exam Vital Signs Vital Signs Date Time Temp Pulse Resp B/P Pulse Ox O2 Delivery O2 Flow Rate FiO2 05/11/17 14:13 97.4 73 16 151/90 97 05/11/17 08:56 96.9 78 16 158/91 96 05/11/17 04:00 96.0 70 20 142/86 97 05/11/17 00:00 96.9 78 20 162/89 96 05/10/17 20:00 97.4 87 20 151/85 96 05/10/17 16:57 97.6 84 19 162/72 91 Physical Exam GENERAL: Patient is a well-nourished, well-developed female, awake and alert , not in respiratory distress. SKIN: Warm and dry. No generalized rash, no ecchymoses and no evidence of embolic lesions. HEAD: Atraumatic. Normocephalic. No temporal wasting, or tenderness. EYES: Monette conjunctiva. No petechia or hemorrhage. Pupils equal, round and reactive to light. Extraocular movements full and intact. No scleral icterus. No injection or drainage. EARS, NOSE AND THROAT: Nose without bleeding or purulent nasal discharge. No sinus tenderness. Mucous membranes pink and moist. No oral lesions noted. No exudate. No oral thrush. NECK: Trachea midline. Supple and not tender, no meningeal signs CARDIOVASCULAR: Regular rate and rhythm. No murmurs, rubs or gallops heard RESPIRATORY: Clear to auscultation. Breath sounds equal bilaterally. No rales , wheezing or rhonchi ABDOMEN: Soft, non-tender, nondistended. Bowel sounds present and normoactive. No guarding. No rebound. No organomegaly. EXTREMITIES: No clubbing, cyanosis, or edema. L hand has an intact dry dressing in place. there is lymphangitis in dorsal aspect of her forearm going up to the olecranon area, and a wrapper operator pink area on the volar surface of her forearm. No calf tenderness. Well perfused and warm. NEUROLOGICAL: Awake and alert. Cranial nerves grossly intact. Motor grossly within normal limits. PSYCHIATRIC: Normal affect, calm and cooperative. LINE: No evidence of infection Laboratory Laboratory Tests Test 05/11/17 05:05 White Blood Count 12.8 Red Blood Count 4.25 Hemoglobin 13.2 Hematocrit 38.8 Mean Corpuscular Volume 91.4 Mean Corpuscular Hemoglobin 31.1 Mean Corpuscular Hemoglobin 34.0 Concent Red Cell Distribution Width 12.1 Platelet Count 267 Mean Platelet Volume 8.6 Neutrophils (%) (Auto) 74.9 Lymphocytes (%) (Auto) 15.7 Monocytes (%) (Auto) 8.0 Eosinophils (%) (Auto) 1.0 Basophils (%) (Auto) 0.4 Neutrophils # (Auto) 9.6 Lymphocytes # (Auto) 2.0 Monocytes # (Auto) 1.0 Eosinophils # (Auto) 0.1 Basophils # (Auto) 0.1 CBC Comment DIFF FINAL Differential Comment Date/Time Procedure Status Source Growth 05/08/17 04:45 Aerobic Blood Culture - Preliminary Resulted Blood Peripheral NO GROWTH IN 3 DAYS 05/08/17 04:45 Anaerobic Blood Culture - Preliminary Resulted Blood Peripheral NO GROWTH IN 3 DAYS 05/08/17 03:50 Gram Stain - Final Complete Wound Finger 05/08/17 03:50 Wound Culture - Final Complete Staphylococcus Aureus Group A Beta Strep Result Diagram: 05/11/17 0505 05/09/17 0625 Imaging Last Impressions Finger X-Ray 05/08/17 0342 Signed Impressions: Service Date/Time: Monday, May 08, 2017 03:55 - CONCLUSION: Soft tissue swelling. No acute bony abnormality. Que Daly MD Assessment and Plan Assessment and Plan IMPRESSION Cellulitis L hand with lymphangitis and with abscess L thumb, S/P I and D 05/10 - wound C/S MSSA and GAS RECOMMENDATION Change to a cephalosporin - Ancef Stop IV vanco and Bactrim Short course of Clinda which can help in quicker control of GAS infection LUE elevation Monitor progress Would expect that she will be D/C on oral Abx I will follow along with you Thank you for this consultation Discussed Condition With Explained plan to the patient Eun Peraza MD May 11, 2017 14:38
--- NOTE | 2017-05-11 15:01 | PD.PLAS.PN ---
Subjective Remarks Patient reports less swelling and pain. Vital Signs Date Time Temp Pulse Resp B/P Pulse Ox O2 Delivery O2 Flow Rate FiO2 05/11/17 14:13 97.4 73 16 151/90 97 05/11/17 08:56 96.9 78 16 158/91 96 05/11/17 04:00 96.0 70 20 142/86 97 05/11/17 00:00 96.9 78 20 162/89 96 05/10/17 20:00 97.4 87 20 151/85 96 05/10/17 16:57 97.6 84 19 162/72 91 I/O 05/10/17 05/10/17 05/10/17 05/11/17 05/11/17 05/11/17 07:00 15:00 23:00 07:00 15:00 23:00 Intake Total 250 ml 840 ml 1250 ml 120 ml Output Total 0 ml Balance 250 ml 840 ml 1250 ml 120 ml Intake Oral 0 ml 240 ml 1250 ml 120 ml IV Total 250 ml 100 ml Other 500 ml Output Urine Total 0 ml # Voids 1 0 9 0 # Bowel Movements 0 0 0 Laboratory Tests Test 05/11/17 05:05 White Blood Count 12.8 Red Blood Count 4.25 Hemoglobin 13.2 Hematocrit 38.8 Mean Corpuscular Volume 91.4 Mean Corpuscular Hemoglobin 31.1 Mean Corpuscular Hemoglobin 34.0 Concent Red Cell Distribution Width 12.1 Platelet Count 267 Mean Platelet Volume 8.6 Neutrophils (%) (Auto) 74.9 Lymphocytes (%) (Auto) 15.7 Monocytes (%) (Auto) 8.0 Eosinophils (%) (Auto) 1.0 Basophils (%) (Auto) 0.4 Neutrophils # (Auto) 9.6 Lymphocytes # (Auto) 2.0 Monocytes # (Auto) 1.0 Eosinophils # (Auto) 0.1 Basophils # (Auto) 0.1 CBC Comment DIFF FINAL Differential Comment Date/Time Procedure Status Source Growth 05/08/17 04:45 Aerobic Blood Culture - Preliminary Resulted Blood Peripheral NO GROWTH IN 3 DAYS 05/08/17 04:45 Anaerobic Blood Culture - Preliminary Resulted Blood Peripheral NO GROWTH IN 3 DAYS 05/08/17 03:50 Gram Stain - Final Complete Wound Finger 05/08/17 03:50 Wound Culture - Final Complete Staphylococcus Aureus Group A Beta Strep Result Diagram: 05/11/17 0505 05/09/17 0625 Exam Findings Her range of motion has improved. There is still swelling of the surrounding tissues although diminished. Her forearm is non-tender and less swollen. Plan Impression: The patient is improved. Plan: We will resume soaking the thumb daily. I anticipate that she may be able to be discharged in 24 hours. Will check labs in the am. Tamara Brenner MD May 11, 2017 15:01
[2017-05-11] MEDS: ceFAZolin 2 GM PREMIX 50 ML IV SCH ×2 (15:44→23:33)
[2017-05-11 16:31] LABS: POTASSIUM 3.8 MEQ/L (3.5-5.1)
[2017-05-11 16:34] LABS: BICARBONATE 26.4 MEQ/L (21.0-32.0)
[2017-05-11] MEDS ORDERED: VANCOMYCIN TROUGH ONE (16:45)
[2017-05-11] MEDS: CLINDAMYCIN INJ 600 MG in SODIUM CHLORIDE 0.9% INJ 100 ML IV SCH (17:21)
[2017-05-11 17:23] VITALS: BP 164/97; PULSE 82; RESP 18; TEMP 97.1; O2SAT 96
[2017-05-11 20:00] VITALS: BP 167/97; PULSE 68; RESP 16; TEMP 96.4; O2SAT 96
[2017-05-12] VITALS: BP 154/96; PULSE 67; RESP 16; TEMP 96.3; O2SAT 97
[2017-05-12] MEDS: CLINDAMYCIN INJ 600 MG in SODIUM CHLORIDE 0.9% INJ 100 ML IV SCH ×3 (00:15→15:28)
[2017-05-12 05:43] LABS: AUTOMATED NEUTROPHIL # 4.9 TH/MM3 (1.8-7.7); BASOPHIL # 0.1 TH/MM3 (0-0.2); BASOPHIL % 0.9 % (0.0-2.0); EOSINOPHIL # 0.4 TH/MM3 (0-0.4); EOSINOPHIL % 4.5 % (0.0-4.0); HEMATOCRIT 36.8 % (35.0-46.0); HEMO FLAGS DIFF FINAL; LYMPH % 30.9 % (9.0-44.0); LYMPHOCYTE # 2.7 TH/MM3 (1.0-4.8); MEAN CELL VOLUME 91.8 FL (80.0-100.0); MEAN CORPUSCULAR HEMOGLOBIN 31.7 PG (27.0-34.0); MEAN CORPUSCULAR HGB CONC 34.6 % (32.0-36.0); MONO % 8.5 % (0.0-8.0); NEUT % 55.2 % (16.0-70.0); PLATELET COUNT 260 TH/MM3 (150-450); RED BLOOD COUNT 4.01 MIL/MM3 (4.00-5.30); RED CELL DISTRIBUTION WIDTH 12.2 % (11.6-17.2); WHITE BLOOD COUNT 8.8 TH/MM3 (4.0-11.0)
[2017-05-12] MEDS: HYDROmorphone HCL PF 1 MG/ML VIAL IV PUSH PRN ×3 (06:07→21:05)
[2017-05-12] MEDS: ceFAZolin 2 GM PREMIX 50 ML IV SCH ×3 (06:07→23:45)
[2017-05-12] MEDS: ONDANSETRON HCL 4 MG/2 ML VIAL IV PUSH PRN ×3 (08:31→23:45)
[2017-05-12] MEDS: ESTRADIOL 1 MG TAB PO SCH (08:32)
[2017-05-12] MEDS: DOCUSATE SODIUM 50 MG/SENNA 8.6 MG TAB PO SCH ×2 (08:32→21:04)
[2017-05-12] MEDS: SODIUM CHLORIDE 0.9% FLUSH 10 ML FLUSH IV FLUSH SCH ×2 (08:33→21:05)
[2017-05-12] MEDS: POVIDONE IODINE 10% SOLN 118 ML BOTTLE TOPICAL SCH (08:39)
[2017-05-12] MEDS: POVIDONE IODINE 10% OINT 30 GM TUBE TOPICAL SCH (08:39)
[2017-05-12 08:41] VITALS: BP 147/90; PULSE 66; RESP 12; TEMP 96.8; O2SAT 97
--- NOTE | 2017-05-12 10:38 | HHI.PR ---
Subjective Remarks Patient starting to feel better and hand and left arm appears better , appreciate ID evlaution changed to IV ancef and IV clindamycin and WBC count now normal does have some nausea from med given zofran ,Cultures grew MSSA and GAS . Objective Vitals GENERAL: SKIN: Warm and dry. left hand and arm decrease in reddness still some discomfort moving fingers HEAD: Atraumatic. Normocephalic. EYES: Pupils equal and round. No scleral icterus. No injection or drainage. ENT: No nasal bleeding or discharge. Mucous membranes pink and moist. NECK: Trachea midline. No JVD. CARDIOVASCULAR: Regular rate and rhythm. RESPIRATORY: No accessory muscle use. Clear to auscultation. Breath sounds equal bilaterally. GASTROINTESTINAL: Abdomen soft, non-tender, nondistended. Hepatic and splenic margins not palpable. MUSCULOSKELETAL: Extremities without clubbing, cyanosis, or edema. No obvious deformities. NEUROLOGICAL: Awake and alert. No obvious cranial nerve deficits. Motor grossly within normal limits. Five out of 5 muscle strength in the arms and legs. Normal speech. PSYCHIATRIC: Appropriate mood and affect; insight and judgment normal. Vital Signs Date Time Temp Pulse Resp B/P Pulse Ox O2 Delivery O2 Flow Rate FiO2 05/12/17 08:41 96.8 66 12 147/90 97 05/12/17 00:00 96.3 67 16 154/96 97 05/11/17 20:00 96.4 68 16 167/97 96 05/11/17 17:23 97.1 82 18 164/97 96 05/11/17 14:13 97.4 73 16 151/90 97 05/11/17 05/11/17 05/12/17 15:00 23:00 07:00 Intake Total 800 ml 420 ml Balance 800 ml 420 ml Intake Oral 800 ml 420 ml # Voids 3 3 # Bowel Movements 0 Result Diagram: 05/12/17 0435 05/11/17 1618 Imaging Last 24 hours Impressions Finger X-Ray 05/08/17 0285 Signed Impressions: Service Date/Time: Monday, May 08, 2017 03:55 - CONCLUSION: Soft tissue swelling. No acute bony abnormality. Que Daly MD A/P Problem List: (1) Abscess of thumb, left Status: Acute Plan: ,ortho hand has evaluated s/p surgery for left thumb abscess still with pain but improved antibiotics changed to clindamycin IV and Ancef IV and WBC count normal (2) Acute lymphadenitis of arm Status: Acute Plan: slightly better today but red streaking has improved with change in antibiotics (3) Sepsis Status: Acute Plan: resolved Assessment and Plan will await ID as to change to po antibiotics probable discharge tomorrow Denny Schreiber MD May 12, 2017 10:38
[2017-05-12 12:00] VITALS: BP 162/82; PULSE 68; RESP 15; TEMP 96.8; O2SAT 97
[2017-05-12 15:52] VITALS: BP 145/88; PULSE 69; RESP 16; TEMP 96.7; O2SAT 97
[2017-05-12 16:48] VITALS: PULSE 75
[2017-05-12 20:00] VITALS: BP 170/83; PULSE 78; RESP 16; TEMP 96.6; O2SAT 96
[2017-05-13] VITALS: BP 140/78; PULSE 63; RESP 16; TEMP 96.1; O2SAT 95
[2017-05-13] MEDS: CLINDAMYCIN INJ 600 MG in SODIUM CHLORIDE 0.9% INJ 100 ML IV SCH ×2 (00:38→08:20)
[2017-05-13 08:00] VITALS: BP 149/97; PULSE 74; RESP 12; TEMP 96.5; O2SAT 96
[2017-05-13] MEDS: ESTRADIOL 1 MG TAB PO SCH (08:19)
[2017-05-13] MEDS: DOCUSATE SODIUM 50 MG/SENNA 8.6 MG TAB PO SCH (08:19)
[2017-05-13] MEDS: SODIUM CHLORIDE 0.9% FLUSH 10 ML FLUSH IV FLUSH SCH (08:22)
[2017-05-13] MEDS: POVIDONE IODINE 10% OINT 30 GM TUBE TOPICAL SCH (08:26)
[2017-05-13] MEDS: CEPHALEXIN MONOHYDRATE 500 MG CAP PO SCH ×3 (08:29→17:24)
[2017-05-13] MEDS: HYDROmorphone HCL PF 1 MG/ML VIAL IV PUSH PRN (08:41)
--- NOTE | 2017-05-13 10:56 | HHI.FF ---
Face to Face Verification Diagnosis: (1) Abscess of thumb, left (2) Acute lymphadenitis of arm Home Health Nursing Order: Wound care and dressing changes Nursing assessment with vital signs Instructions: dressimng change and evaluation of left thumb and arm I have seen patient Debbi Frazier on 05/13/17. My clinical findings support the need for the requested home health care services because: Infection w/ risk of complications I certify that my clinical findings support that this patient is homebound because: Post-op weakness Will need dressing change and to check on left arm Denny Schreiber MD May 13, 2017 10:56
[2017-05-13 12:00] VITALS: BP 160/88; PULSE 73; RESP 16; TEMP 98.4; O2SAT 96
[2017-05-13] MEDS ORDERED: CHLO2PAD TOPICAL (13:09)
[2017-05-13] MEDS ORDERED: CEPH500C PO (13:09)
[2017-05-13] MEDS ORDERED: HYDR-3516 PO (13:09)
--- NOTE | 2017-05-13 13:18 | HHI.DS ---
Discharge Summary Admission Date May 08, 2017 at 05:04 Admitting Diagnosis sepsis, lymphadenitis left arm, abscess left thumb (1) Abscess of thumb, left Diagnosis: Principal (2) Acute lymphadenitis of arm Diagnosis: Principal (3) Sepsis Diagnosis: [facility] Consultants Hand surgery,ID Procedures I&D left thumb abscess Brief History The patient is a 51-year-old right-hand dominant female that developed an infection on her volar left thumb. She went to an urgent care Center and had it drained but the infection apparently is spreading from the thumb all the way to the antecubital fossa. She denies any fever. She denies any history of diabetes. She was put on Bactrim DS twice daily, she began this medication yesterday. She does not remember having had a tetanus shot since grade school. The patient states that her thumb first began to get red and painful , 3 days ago. She has not been elevating her left thumb. Patient also with blisters on base of thumb. [facility] CBC/BMP: 05/12/17 0435 05/11/17 1618 Significant Findings Laboratory Tests Test 05/11/17 05/11/17 05/12/17 05:05 16:18 04:35 White Blood Count 12.8 TH/MM3 (4.0-11.0) Neutrophils (%) (Auto) 74.9 % (16.0-70.0) Neutrophils # (Auto) 9.6 TH/MM3 (1.8-7.7) Monocytes # (Auto) 1.0 TH/MM3 (0-0.9) Estimat Glomerular Filtration 71 ML/MIN (>89) Rate Calcium Level 8.1 MG/DL (8.5-10.1) Monocytes (%) (Auto) 8.5 % (0.0-8.0) Eosinophils (%) (Auto) 4.5 % (0.0-4.0) PE at Discharge GENERAL: SKIN: Warm and dry. thumb with dressing arm slight reddness HEAD: Atraumatic. Normocephalic. EYES: Pupils equal and round. No scleral icterus. No injection or drainage. ENT: No nasal bleeding or discharge. Mucous membranes pink and moist. NECK: Trachea midline. No JVD. CARDIOVASCULAR: Regular rate and rhythm. RESPIRATORY: No accessory muscle use. Clear to auscultation. Breath sounds equal bilaterally. GASTROINTESTINAL: Abdomen soft, non-tender, nondistended. Hepatic and splenic margins not palpable. MUSCULOSKELETAL: Extremities without clubbing, cyanosis, or edema. No obvious deformities. NEUROLOGICAL: Awake and alert. No obvious cranial nerve deficits. Motor grossly within normal limits. Five out of 5 muscle strength in the arms and legs. Normal speech. PSYCHIATRIC: Appropriate mood and affect; insight and judgment normal. Hospital Course Patient was admitted and initially started on vancomycin and continued on bactrim,seen by Dr. Staton ortho hand and patient continued to have pain and swelling ,lab results and symptoms consistent with sepsis which did improve . Patient was taken to OR for I& D left thumb abscess and irrigation tendon sheath and dressing applied . I consultrd ID who changed meds to ancef 2gm q6 and clindamycin IV for 8 doses and as per ID discharge on keflex ,cultures grew MSSA and GAS sensitive to keflex . Patient discharged home on po keflex 500 qid for 10 days and loratab prn pain and will have home health for dressing change and follow up and patient has appt to see 05/18/17 .Discharged in stable condition. Pt Condition on Discharge: Good Discharge Disposition: Discharge Home Discharge Instructions DIET: Follow Instructions for: As Tolerated, No Restrictions Activities you can perform: Regular-No Restrictions New Medications: Hydrocodone-Acetaminophen (Hydrocodone-Acetaminophen) 5-325 mg Tab 1 TAB PO Q6H one tablet q 6h prn pain PRN PAIN #30 Ref 0 TAB NS Cephalexin (Cephalexin) 500 Mg Cap 500 MG PO Q6HR abscess thumb #40 CAP Chlorhexidine Gluconate Topical (Chlorhexidine Gluconate Topical) 2% Pad 3 PACK TOPICAL PBX WIRE CHIEF PRN SEE LABEL COMMENTS #2 EA Continued Medications: Estradiol (Estradiol) 2 Mg Tab 2 MG PO DAILY Estrogen Supplements #30 Ref 0 TAB Discontinued Medications: Sulfamethoxazole-Trimethoprim (Bactrim DS) 800-160 Mg Tab 1 TAB PO BID Infection Ref 0 TAB Additional Information follow up hand surgeon as above. Denny Schreiber MD May 13, 2017 13:18
[2017-05-13 16:00] VITALS: BP 151/89; PULSE 74; RESP 16; TEMP 97.9; O2SAT 97
[2017-05-13] MEDS: POVIDONE IODINE 10% SOLN 118 ML BOTTLE TOPICAL SCH (17:27)
== END 2017-05-13 17:37 | disposition home or self-care (01) | DRG 854 ==
LOC: PHED 02:40 → PHEDA 05:04 → PH3A 06:09
PROVIDERS: ADMIT Internal Medicine; ATTEND Internal Medicine
PROC: 0JDK0ZZ Extraction of Left Hand Subcutaneous Tissue and Fascia, Open Approach (ICD-10-PCS; 2017-05-10)
PROC: 3E0T3CZ (ICD-10-PCS; 2017-05-10)
PROC: 0J9K0ZX Drainage of Left Hand Subcutaneous Tissue and Fascia, Open Approach, Diagnostic (ICD-10-PCS; principal; 2017-05-10 12:34)
DX: A41.9 Sepsis, unspecified organism (principal); L02.512 Cutaneous abscess of left hand; L03.012 Cellulitis of left finger; B95.61 Methicillin susceptible Staphylococcus aureus infection as the cause of diseases classified elsewhere; L04.9 Acute lymphadenitis, unspecified; F17.210 Nicotine dependence, cigarettes, uncomplicated; Z90.710 Acquired absence of both cervix and uterus
CPT/HCPCS: 73140; 80048; 80053; 80202; 82948; 83605; 85025; 86403; 87040; 87070; 87147; 87186; 87205; 90471; 90714; J0690; J1170; J2405; J3010; J3370; J7050; J7120